=== PATIENT | male | born 2000 | race African-American/Black ===

== ENCOUNTER 2018-03-07 07:24 | Emergency (ER) | payer BC ==
[2018-03-07] MEDS ORDERED: Albuterol 0.083% 2.5 MG/3 ML Neb Soln NEB ONE (07:37)
--- NOTE | 2018-03-07 07:42 | EDM.PDOC ---
ED HPI GENERAL MEDICAL PROBLEM - General Chief Complaint: Respiratory Problem Stated Complaint: SOB Time Seen by Provider: 03/07/18 07:38 Source of Information: Reports: Patient History Limitations: Reports: No Limitations - History of Present Illness INITIAL COMMENTS - FREE TEXT/NARRATIVE: Presents with cough productive of green sputum and congestion x 2 days. Became short of breath with exertion today during exertion. Patient believes he may have excise induced asthma. Duration: Day(s): (2) Worsens with: Reports: Other (exertion) Associated Symptoms: Reports: Shortness of Breath. Denies: Fever/Chills - Related Data Allergies Allergy/AdvReac Type Severity Reaction Status Date / Time seasonal Allergy Swelling Uncoded 03/07/18 07:38 Home Meds: Home Meds Albuterol [Ventolin HFA] 2 puff INH Q4H PRN #1 inhaler 03/07/18 [Rx] Azithromycin [Zithromax] 250 mg PO DAILY #6 tab 03/07/18 [Rx] Inhaler, Assist Devices [Aerochamber MV] 1 each MC Q4H #1 spacer 03/07/18 [Rx] Past Medical History - Past Health History Medical/Surgical History: Denies Medical/Surgical History Social & Family History - Family History Other Family History: Asthma (mother) - Tobacco Use Smoking Status *Q: Never Smoker ED ROS GENERAL - Review of Systems Review Of Systems: ROS reveals no pertinent complaints other than HPI. ED EXAM, GENERAL - Physical Exam Exam: See Below Exam Limited By: No Limitations General Appearance: Alert, WD/WN, No Apparent Distress Ears: Normal External Exam, Normal Canal, Normal TMs Throat/Mouth: Normal Inspection Head: Atraumatic, Normocephalic Neck: Normal Inspection, Supple Respiratory/Chest: No Respiratory Distress, No Accessory Muscle Use, Decreased Breath Sounds. No: Wheezing Cardiovascular: Regular Rate, Rhythm, No JVD, No Murmur, No Rub Back Exam: Full Range of Motion Extremities: Normal Range of Motion Neurological: Alert, Normal Cognition, No Motor/Sensory Deficits Psychiatric: Normal Affect, Normal Mood Skin Exam: Warm, Dry, Intact, Normal Color, No Rash Course - Vital Signs Last Recorded V/S: Last Vital Signs Temp 36.9 C 03/07/18 07:30 Pulse 66 03/07/18 07:30 Resp 16 03/07/18 07:30 BP 149/59 H 03/07/18 07:30 Pulse Ox 97 03/07/18 07:30 - Orders/Labs/Meds Orders: Active Orders 24 hr Category Date Time Status RT Aerosol Therapy [RC] ASDIRECTED Care 03/07/18 07:37 Active CXR [Chest 2V] [CR] Stat Exams 03/07/18 07:37 Taken Meds: Medications Discontinued Medications Generic Name Dose Route Start Last Admin Trade Name Freq PRN Reason Stop Dose Admin Albuterol 2.5 mg 03/07/18 07:37 03/07/18 07:47 Proventil Neb Soln NEB 03/07/18 07:38 2.5 mg ONETIME ONE Administration - Radiology Interpretation Free Text/Narrative:: CXR: No acute disease (ED provider interpretation) - Re-Assessments/Exams Free Text/Narrative Re-Assessment/Exam: 03/07/18 08:01 Patient feels better. Lungs CTA bilaterally. Departure - Departure Time of Disposition: 08:01 Disposition: Home, Self-Care 01 Condition: Good Clinical Impression: Bronchitis - Discharge Information *PRESCRIPTION DRUG MONITORING PROGRAM REVIEWED*: No *COPY OF PRESCRIPTION DRUG MONITORING REPORT IN PATIENT OSVALDO: Not Applicable Prescriptions: Albuterol [Ventolin HFA] 2 puff INH Q4H PRN #1 inhaler PRN Reason: Wheezing Azithromycin [Zithromax] 250 mg PO DAILY #6 tab Inhaler, Assist Devices [Aerochamber MV] 1 each MC Q4H #1 spacer Instructions: How to Use a Metered Dose Inhaler, Acute Bronchitis, Adult, Easy- to-Read Forms: ED Department Discharge Additional Instructions: Fill prescriptions for Albuterol and Zithromax, take as directed. Follow up if symptoms don't improve 2-3 days. Return to the ER if symptoms worsen. - My Orders Last 24 Hours: My Active Orders 03/07/18 07:37 RT Aerosol Therapy [RC] ASDIRECTED CXR [Chest 2V] [CR] Stat - Assessment/Plan Last 24 Hours: My Active Orders 03/07/18 07:37 RT Aerosol Therapy [RC] ASDIRECTED CXR [Chest 2V] [CR] Stat
--- NOTE | 2018-03-07 11:04 | CR ---
INDICATION: Cough, shortness of breath - increased shortness of breath after morning workouts. CHEST: PA and lateral views of the chest were obtained 03/07/2018 - no comparisons. The heart, mediastinum, and bony thorax were unremarkable. An active infiltrate or effusion was not identified. IMPRESSION: No active disease. MTDD
== END 2018-03-07 08:23 | disposition home or self-care (01) ==
LOC: FB.ED 07:24
DX: J40 Bronchitis, not specified as acute or chronic (principal); Z91.09 Other allergy status, other than to drugs and biological substances
CPT/HCPCS: 71046; 94640; 99283